=== PATIENT | female | born 2005 | race Caucasian/White ===

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

== ENCOUNTER 2025-04-26 10:38 | Emergency (ER) | payer BC, OTHER ==
[~2025-04-26] VITALS: Ht 170.2 cm; Wt 63.5 kg
[~2025-04-26 10:38] MED LIST changes: +Celexa10 MG PO; +FAMO40 PO; +ONDA4; +ONDA4ODT MM; +POLYTRIM EYE DR10 M1 RIGHTEYE; +PROM12.5S PR; +[UNRECOGNIZED DRUG - CODE] RC
[2025-04-26 11:17] VITALS: BP 112/88
== END 2025-04-26 12:45 | disposition home or self-care (01) ==
LOC: ER 10:38
DX: J30.9 Allergic rhinitis, unspecified (principal); K21.9 Gastro-esophageal reflux disease without esophagitis; J02.9 Acute pharyngitis, unspecified; Z88.0 Allergy status to penicillin; Z79.899 Other long term (current) drug therapy
CPT/HCPCS: 87081; 87430; 99284

== ENCOUNTER 2025-05-10 11:43 | Emergency (ER) | payer BC ==
[~2025-05-10] VITALS: Ht 170.2 cm; Wt 61.2 kg
[2025-05-10 12:48] VITALS: BP 108/67
== END 2025-05-10 13:01 | disposition home or self-care (01) ==
LOC: ER 11:43
DX: J30.9 Allergic rhinitis, unspecified (principal); Z59.89 Other problems related to housing and economic circumstances; Z88.1 Allergy status to other antibiotic agents; Z79.899 Other long term (current) drug therapy
CPT/HCPCS: 99282

== ENCOUNTER 2025-10-10 08:03 | Emergency (ER) | payer BC ==
[~2025-10-10] VITALS: Ht 170.2 cm; Wt 72.6 kg
[2025-10-10] MEDS ORDERED: DEPO-TESTO200 MG/11 IM (08:44)
[2025-10-10 10:09] VITALS: BP 113/75
[2025-10-10 11:09] LABS: Candida glabrata-krusei, PCR NOT DETECTED (NOT DETECT)
[2025-10-10 11:41] LABS: Chlamydia Trachomatis Vaginal NOT DETECTED (NOT DETECT); Neisseria Gonorrhoea Vaginal NOT DETECTED (NOT DETECT)
[2025-10-10 12:05] LABS: Bacterial Vaginosis PCR Positive (NEGATIVE); Candida Group, PCR DETECTED (NOT DETECT)
[2025-10-10] MEDS ORDERED: METR500 PO (15:30)
[2025-10-10] MEDS ORDERED: Diflucan150 MG PO (15:30)
== END 2025-10-10 10:10 | disposition home or self-care (01) ==
LOC: ER 08:03
PROVIDERS: Physician Assistant
DX: N76.0 Acute vaginitis (principal); B37.31 Acute candidiasis of vulva and vagina; Z79.899 Other long term (current) drug therapy; Z88.0 Allergy status to penicillin
CPT/HCPCS: 81000; 81515; 87491; 87591